=== PATIENT | female | born 2000 | race African-American/Black ===

== ENCOUNTER 2019-05-02 09:30 | Emergency (ER) | payer OTHER, MEDICAID ==
--- NOTE | 2019-05-02 10:21 | ED ---
GI/ HPI - HPI Summary HPI Summary: 18-year-old -[place] Citizen female who was recently diagnosed with gonorrhea in mid-March presents to the emergency department today complaining of pelvic pain. She states her symptoms began shortly after having sex with her boyfriend who is a new sexual partner in a non-monogamous relationship. She denies any vaginal discharge or pain with urination but states her urine has been "bubbly". She denies any fevers or chills. Patient says she was given ceftriaxone and azithromycin in March for gonorrhea and feels like she improved after this treatment. She denies chest pain, shortness breath, abdominal pain, pain with urination, joint pain and rash. - History of Current Complaint Chief Complaint: EDAbdPain Stated Complaint: PELVIC PAIN Hx Obtained From: Patient Onset/Duration: Started Hours Ago Timing: Constant Severity: Mild Current Severity: Mild Pain Intensity: 3 Location of Pain: Suprapubic Pain Characteristics: Dull Associated Signs and Symptoms: Negative: Back Pain, Nausea, Vomiting, Rectal Pain, Fever, Chest Pain, UTI Symptoms Additional Signs & Symptoms: Negative: Vaginal Discharge Aggravating Factor(s): Nothing Alleviating Factor(s): Nothing - Allergy/Home Medications Allergies/Adverse Reactions: Allergies Allergy/AdvReac Type Severity Reaction Status Date / Time No Known Allergies Allergy Verified 05/02/19 09:35 Home Medications: Home Medications NK [No Home Medications Reported] 05/02/19 [History Confirmed 05/02/19] PMH/Surg Hx/FS Hx/Imm Hx Infectious Disease History: No Infectious Disease History: Denies: Traveled Outside the [place] in Last 30 Days Review of Systems Constitutional: Negative Cardiovascular: Negative Respiratory: Negative Gastrointestinal: Negative Positive: flank pain, pain. Negative: burning, dysuria, discharge, frequency, hematuria Negative: Rash Psychological: Normal All Other Systems Reviewed And Are Negative: Yes Physical Exam Triage Information Reviewed: Yes Vital Signs On Initial Exam: Initial Vitals Temp Pulse Resp BP Pulse Ox 98.3 F 82 16 161/101 98 05/02/19 09:31 05/02/19 09:31 05/02/19 09:31 05/02/19 09:31 05/02/19 09:31 Vital Signs Reviewed: Yes Appearance: Positive: Well-Appearing, No Pain Distress, Well-Nourished Skin: Positive: Warm, Skin Color Reflects Adequate Perfusion Head/Face: Positive: Normal Head/Face Inspection Eyes: Positive: Normal, EOMI ENT: Positive: Hearing grossly normal Respiratory/Lung Sounds: Positive: Clear to Auscultation, Breath Sounds Present Cardiovascular: Positive: Normal, RRR, S1, S2 Abdomen Description: Positive: Nontender. Negative: Guarding Bowel Sounds: Positive: Present Pelvic Exam: Positive: Speculum Exam Normal, Bimanual Exam Normal, No Cerv. Motion Tender, No Masses, Discharge, Other - Examination of the external genitalia revealed no abnormal lesions or erythema. There is no evidence of drainage from the vaginal canal. There is no foul odor noticed during examination. Insertion of the speculum was done with no pain. There is no lesions of the vaginal canal. Examination of the cervix revealed no areas of erythema however there was copious amounts of thick white drainage on the cervix. Patient tolerated pelvic exam well. Cultures were taken for investigation of vaginal pathology. This exam was chaperoned by emergency Department senior manufacturing technician Leah Robledo.. Negative: Active Bleeding, Cervicitis, Lesions, Tender w/ Cervical Motion Psychiatric: Positive: Normal AVPU Assessment: Alert Procedures - Sedation Patient Received Moderate/Deep Sedation with Procedure: No Diagnostics - Vital Signs Vital Signs Temp Pulse Resp BP Pulse Ox 05/02/19 09:31 98.3 F 82 16 161/101 98 - Laboratory Lab Statement: Any lab studies that have been ordered have been reviewed, and results considered in the medical decision making process. GIGU Course/Dx - Course Course Of Treatment: Patient was evaluated for possible gonorrhea/chlamydia in the emergency department today. The patient was seen and examined. A pelvic exam was performed which showed no lesions of the external genitalia or signs of discharge in the vaginal canal. Speculum exam was done without pain. There are no lesions to the vaginal wall. There was copious thick grayish white discharge on the cervix with no evidence of cervical erythema or tenderness. No cervical motion tenderness was appreciated during exam. Cultures were collected. Patient was treated empirically with azithromycin and ceftriaxone for possible gonorrhea/chlamydia. The patient was educated that she must inform sexual partners that they should be evaluated for the same issue. She is told to abstain from sex for 10 days after treatment and follow-up were INFORMATION SERVICES TECH or primary care physician. Patient agrees with plan and was discharged with stable vital signs. - Diagnoses Differential Diagnoses - Female: STD, Urinary Tract Infection, Vaginitis Provider Diagnoses: Vaginitis Discharge ED - Sign-Out/Discharge Documenting (check all that apply): Patient Departure - Discharge Plan Condition: Stable Disposition: HOME Patient Education Materials: Chlamydia (ED), Gonorrhea (ED) Referrals: No Primary Care Phys,NOPCP [Primary Care Provider] - Additional Instructions: You were treated today in the emergency department for probable gonorrhea/ chlamydia. You were given antibiotics which will treat this infection however it is very important that you do not participate in any sexual activity for 10 days after this treatment. You must also tell all sexual partners to be treated. If you develop any new or worsening symptoms including fever or severe abdominal pain please return to the emergency Department immediately. You may take ibuprofen 600 mg every 6 hours for pain. Return to activity as tolerated. - Billing Disposition and Condition Condition: STABLE Disposition: Home - Attestation Statements Provider Attestation: I was available for consult. This patient was seen by the JUAN MANUEL. The patient was not presented to, seen by, or examined by me. -Mackenzie
[2019-05-02] MEDS ORDERED: Azithromycin TAB* 250 MG PO ONE (11:27)
[2019-05-02] MEDS ORDERED: cefTRIAXone VIAL(*) 250 MG VIAL IM ONE (11:28)
[2019-05-02] MEDS ORDERED: Lidocaine 1% MPF ** 5 ML VIAL IM ONE (11:28)
[2019-05-02 11:48] VITALS: BP 130/91
[2019-05-02 12:00] LABS: HIV 4th Generation Nonreactive (Nonreactive)
[2019-05-03 13:21] LABS: Chlamydia trachomatis NAA Negative (Negative); Neisseria gonorrhoeae (GC) NAA Negative (Negative)
--- NOTE | 2019-05-04 09:28 | ED ---
Imaging and Labs Follow Up Follow Up Type: Labs/Cultures Labs/Culture Result: Laboratory results obtained on May 02, 2019 returned showing no evidence of gonococcal or chlamydial infection. However they did show positive evidence of bacterial vaginosis and candidal vaginosis. Her blood tests also showed evidence of possible syphilis. This test does not have the best specificity so repeat testing is suggested in 8 days. This may be done by her primary care physician. Due to the positive diagnosis of bacterial vaginosis I have sent a prescription for metronidazole 500 mg to be taken twice a day for 7 days for treatment. She was called and notified of these results at 0933. Patient Communication/Plan: Patient was contacted by phone at 0934 on 05/04/2019 and was made aware of these results. She agrees she will follow up with her PCP for further analysis regarding her results. Provider Diagnoses: Vaginitis
[2019-05-04 11:58] LABS: RPR Nonreactive (Nonreactive)
--- NOTE | 2019-05-04 12:26 | ED ---
Imaging and Labs Follow Up Follow Up Type: Labs/Cultures Labs/Culture Result: Laboratory called at 1224 on 05/04/2019 with results of a positive syphilis IgG and a pending RPR which was sent for outside analysis. The patient was made aware of this morning and is already been resolved. Nothing further at this time Patient Communication/Plan: The patient was already informed this morning. Nothing further at this time. Provider Diagnoses: Vaginitis
[2019-05-07 15:09] LABS: T.Pallidum TP-PA Negative (Negative)
== END 2019-05-02 11:47 | disposition home or self-care (01) ==
LOC: ED 09:30
DX: N76.0 Acute vaginitis (principal)
CPT/HCPCS: 36415; 86592; 86780; 87389; 87480; 87491; 87510; 87591; 87661; 96372; 99282; A9270-GY; J0696

== ENCOUNTER 2022-07-17 01:28 | Inpatient (IN) ==
[~2022-07-17 01:28] MED LIST: Buffered Lidocaine 1% SYRIN 1 ml INTRADERM ONE
[2022-07-17 02:45] LABS: ABS Lymphocytes 2.7 10^3/ul (1.0-4.8); ABS Neutrophils 7.8 10^3/ul (1.5-7.7); Eosinophil % 0.4 %; Hematocrit 35 % (35-47); Hemoglobin 11.4 g/dL (12.0-16.0); Lymphocyte % 22.9 %; Mean Corpuscular HGB Conc 32 g/dL (31-36); Mean Corpuscular Hemoglobin 30 pg (27-31); Mean Corpuscular Volume 91 fL (80-97); Mean Platelet Volume 8.8 fL (7.4-10.4); Nucleated Red Blood Cells % 0.1; Platelet Count 254 10^3/uL (150-450); Red Blood Count 3.87 10^6 /uL (3.70-4.87); Red Cell Distribution Width 14 % (10-15); White Blood Count 11.6 10^3/uL (3.5-10.8)
[2022-07-17 02:52] LABS: Urine Appearance Cloudy; Urine Bilirubin Negative (Negative); Urine Blood 1+ (Negative); Urine Color Yellow; Urine Glucose Negative (Negative); Urine Ketones Negative (Negative); Urine Nitrite Negative (Negative); Urine Protein Negative (Negative); Urine Specific Gravity 1.012 (1.002-1.030); Urine Urobilinogen Negative (Negative)
[2022-07-17] MEDS ORDERED: Lidocaine 2% w/ EPI 1:200,000 MPF 20 ML SDV VIAL ONE (02:52)
[2022-07-17] MEDS ORDERED: OBEPIDURAL (200 ML) 200 ML EPIDURAL ONE (02:54)
[2022-07-17] MEDS ORDERED: Lactated Ringers 1000 ml BAG 1,000 ML IV ONE ×2 (02:57→03:34)
[2022-07-17] MEDS ORDERED: Lactated Ringers 1000 ml BAG 1,000 ML IV SCH ×2 (03:00→04:00)
[2022-07-17 03:12] LABS: Albumin 3.5 g/dL (3.2-5.2); Albumin/Globulin Ratio 1.3 (1-3); Creatinine, Serum 0.81 mg/dL (0.51-0.95); Globulin 2.6 g/dL (2-4); Potassium 4.2 mmol/L (3.5-5.0); Total Bilirubin 0.5 mg/dL (0.2-1.0); Total Protein 6.1 g/dL (6.4-8.9); Uric Acid 5.7 mg/dL (2.3-6.6); eGFR CKD-EPI 104.5 (>60)
[2022-07-17] MEDS ORDERED: Phenylephrine 40 mcg/mL 10mL (400mcg) SYRINGE IV PUSH PRN ×2 (03:34)
[2022-07-17] MEDS ORDERED: Sodium Citrate/Citric Acid LIQ 15 ML UDC PO PRN (03:34)
[2022-07-17 03:48] LABS: Urine Bacteria Absent (Absent); Urine Red Blood Cell 2+(6-10/hpf) (Absent); Urine Squamous Epithelial Cell Present (Absent); Urine White Blood Cell 1+(6-10/hpf) (Absent)
[2022-07-17] MEDS ORDERED: OBEPIDURAL (200 ML) 200 ML EPIDURAL SCH (04:00)
[2022-07-17] MEDS ORDERED: Glycerin ADULT 2.4 gm SUPP PR PRN (04:26)
[2022-07-17] MEDS ORDERED: Dibucaine 1% OINT 28.35 GM TUBE PR PRN (04:26)
[2022-07-17] MEDS ORDERED: Witch Hazel PAD JAR TOPICAL PRN (04:26)
[2022-07-17 06:54] LABS: Urine Benzodiazepine Screen None Detected (None Detect); Urine Cannabinoids Screen Presumptive Positive (None Detect); Urine Opiates Screen None Detected (None Detect)
[2022-07-18 08:06] LABS: ABS Eosinophils 0.1 10^3/ul (0-0.6); ABS Lymphocytes 2.5 10^3/ul (1.0-4.8); ABS Monocytes 0.8 10^3/ul (0-0.8); ABS Neutrophils 7.1 10^3/ul (1.5-7.7); Eosinophil % 0.8 %; Hematocrit 33 % (35-47); Hemoglobin 11.1 g/dL (12.0-16.0); Lymphocyte % 24.1 %; Mean Corpuscular HGB Conc 34 g/dL (31-36); Mean Corpuscular Hemoglobin 31 pg (27-31); Mean Corpuscular Volume 92 fL (80-97); Mean Platelet Volume 8.1 fL (7.4-10.4); Nucleated Red Blood Cells % 0.1; Platelet Count 222 10^3/uL (150-450); Red Cell Distribution Width 14 % (10-15); White Blood Count 10.5 10^3/uL (3.5-10.8)
[2022-07-18 12:33] VITALS: BP 130/92
== END 2022-07-18 12:43 | disposition home or self-care (01) | DRG 807 ==
LOC: MCHOBOUT 01:28 → MCHOB 02:30
PROVIDERS: ADMIT Midwife; ATTEND Midwife